=== PATIENT | male | born 1975 | race Asian ===

== ENCOUNTER 2017-08-10 10:42 | Emergency (ER) | payer OTHER ==
[~2017-08-10] VITALS: Ht 172.7 cm; Wt 61.7 kg
[2017-08-10] MEDS: SODIUM CHLORIDE FLUSH 10 ML SYR INJ PRN ×2 (11:30→11:31)
[2017-08-10] MEDS ORDERED: FENTANYL CITRATE/PF 100MCG/2 ML INJ IV ONE ×2 (13:45→14:15)
[2017-08-10 14:51] VITALS: BP 142/90
== END 2017-08-10 14:50 | disposition home or self-care (01) ==
LOC: FSED 10:42 → EEVIPCON 10:42 → FSED 14:50
DX: R10.31 Right lower quadrant pain (principal); K40.90 Unilateral inguinal hernia, without obstruction or gangrene, not specified as recurrent
CPT/HCPCS: 76870; 80053; 85025; 99284